=== PATIENT | male | born 1965 | race Caucasian/White ===

== ENCOUNTER 2017-06-09 18:21 | Inpatient (IN) | payer SELFPAY ==
[~2017-06-09] VITALS: Ht 152.4 cm; Wt 50.8 kg
[2017-06-09] MEDS ORDERED: PANTOPRAZOLE SODIUM 40 MG/VIAL IV NR (21:15)
[2017-06-09] MEDS: OCTREOTIDE 1,000 MCG in SODIUM CHLORIDE 0.9% 100 ML IV NR (21:15)
[2017-06-09] MEDS ORDERED: OCTREOTIDE ACETATE 50 MCG/ML 1ML IV NR (21:15)
[2017-06-09] MEDS ORDERED: PANTOPRAZOLE 80 MG in SODIUM CHLORIDE 0.9% 100 ML IV SCH ×2 (21:15→22:00)
[2017-06-09 21:38] LABS: HEMATOCRIT. 34.7 % (42.0-52.0); HEMOGLOBIN. 12.3 g/dL (14.0-18.0); MEAN CORPUSCULAR VOLUME 101.4 fL (80.0-94.0); MEAN PLATELET VOLUME 8.4 fl (7.4-10.4); PLATELET 107 x1000/uL (130-400); RED BLOOD CELL COUNT 3.42 mill/uL (4.7-6.1); RED CELL DISTRIBUTION WIDTH 15.1 % (11.6-14.6)
[2017-06-09 21:42] LABS: CHLORIDE 98 mEq/L (98-107)
[2017-06-09 21:45] LABS: INR 1.2
[2017-06-09 21:59] LABS: PLATELET ESTIMATE DECREASED
[2017-06-09] MEDS ORDERED: OCTREOTIDE 1,000 MCG in SODIUM CHLORIDE 0.9% 100 ML IV NR (22:00)
[2017-06-09] MEDS ORDERED: IOHEXOL-300 100 ML BOTTLE ONE (22:55)
[2017-06-10 03:43] VITALS: BP 119/85
[2017-06-10 04:35] VITALS: BP 115/74
[2017-06-10] MEDS ORDERED: ONDANSETRON HCL 4MG/2ML VIAL IV PRN (05:15)
[2017-06-10] MEDS ORDERED: OCTREOTIDE 1,000 MCG in SODIUM CHLORIDE 0.9% 100 ML IV ONE (05:15)
[2017-06-10] MEDS ORDERED: MORPHINE SULFATE 4 MG/ML CPJ (NOT FOR IM USE) IV PRN (05:15)
[2017-06-10] MEDS ORDERED: ACETAMINOPHEN 650MG SUPP PR PRN (05:15)
[2017-06-10] MEDS ORDERED: LORAZEPAM 2MG/ML CPJ IV PRN (05:15)
[2017-06-10] MEDS: DEXT 5%/0.45% NACL KCL 10MEQ/L 1,000 ML IV SCH ×2 (06:06→21:54)
[2017-06-10 08:32] VITALS: BP 117/84
[2017-06-10] MEDS ORDERED: PANTOPRAZOLE 80 MG in SODIUM CHLORIDE 0.9% 100 ML IV SCH (10:00)
[2017-06-10] MEDS ORDERED: PNEUMOCOCCAL 23-VAL P-SAC VAC 0.5 ML IM ONE (12:00)
[2017-06-10 12:40] VITALS: BP 110/80
[2017-06-10] MEDS: PANTOPRAZOLE 40MG DR TABLET PO SCH (12:45)
[2017-06-10] MEDS: OCTREOTIDE 1,000 MCG in SODIUM CHLORIDE 0.9% 100 ML IV NR (13:36)
[2017-06-10 16:24] VITALS: BP 139/73
[2017-06-10] MEDS ORDERED: OCTREOTIDE 1,000 MCG in SODIUM CHLORIDE 0.9% 100 ML IV SCH (18:00)
[2017-06-10 20:00] VITALS: BP 110/99
[2017-06-11] VITALS: BP 148/52
[2017-06-11 04:00] VITALS: BP 132/65
[2017-06-11] MEDS: PANTOPRAZOLE 40MG DR TABLET PO SCH (06:25)
[2017-06-11 07:24] LABS: EOSINOPHILS % 1.3 % (0.0-5.0); HEMATOCRIT. 34.1 % (42.0-52.0); HEMOGLOBIN. 11.9 g/dL (14.0-18.0); LYMPHOCYTES % 17.7 % (20.0-50.0); MEAN CORPUSCULAR HEMOGLOBIN 35.6 pg (28.0-32.0); MEAN CORPUSCULAR VOLUME 102.4 fL (80.0-94.0); MEAN PLATELET VOLUME 9.4 fl (7.4-10.4); MONOCYTES % 8.2 % (2.0-8.0); NEUTROPHILS % 71.8 % (40.0-76.0); PLATELET 87 x1000/uL (130-400); RED BLOOD CELL COUNT 3.34 mill/uL (4.7-6.1); RED CELL DISTRIBUTION WIDTH 14.5 % (11.6-14.6)
[2017-06-11 07:45] VITALS: BP 119/81
[2017-06-11 07:59] LABS: CHLORIDE 95 mEq/L (98-107)
[2017-06-11] MEDS: DEXT 5%/0.45% NACL KCL 10MEQ/L 1,000 ML IV SCH (08:40)
[2017-06-11] MEDS ORDERED: POTASSIUM CHLORIDE 20MEQ TABLET SR PO SCH ×2 (09:00→13:00)
[2017-06-11 11:52] VITALS: BP 108/67
== END 2017-06-11 15:52 | disposition home or self-care (01) | DRG 253 ==
LOC: ER 18:23 → 6WST 23:51 → ENRESERV 06-10 01:59
PROVIDERS: ADMIT Hospitalist; ATTEND Hospitalist
DX: K92.0 Hematemesis (principal); K76.0 Fatty (change of) liver, not elsewhere classified; R16.0 Hepatomegaly, not elsewhere classified; K57.90 Diverticulosis of intestine, part unspecified, without perforation or abscess without bleeding; R74.0 Nonspecific elevation of levels of transaminase and lactic acid dehydrogenase [LDH]; E80.6 Other disorders of bilirubin metabolism; F10.10 Alcohol abuse, uncomplicated; D53.9 Nutritional anemia, unspecified
CPT/HCPCS: 36415; 74177; 76700; 80053; 83690; 85025; 85610; 86850; 86900; 96374; 96375; 96376; 99291; C9113; J2060; J2354; J7050; Q9967